=== PATIENT | female | born 1975 | race Caucasian/White ===

== ENCOUNTER 2021-12-05 07:14 | Day surgery (SDC) | payer OTHER ==
[~2021-12-05] VITALS: Ht 152.4 cm; Wt 53.5 kg
[2021-12-05] MEDS ORDERED: fentaNYL citrate 0.05 MG/ML VIAL ONE (08:07)
[2021-12-05] MEDS ORDERED: MIDAZOLAM 5 MG/5 ML VIAL ONE (08:07)
[2021-12-05] MEDS ORDERED: LIDOCAINE 2% 100 MG/5 ML UJET TP ONE (08:07)
[2021-12-05] MEDS ORDERED: fentaNYL citrate 0.05 MG/ML VIAL IVP ONE (13:05)
[2021-12-05] MEDS ORDERED: MIDAZOLAM 2 MG/2 ML VIAL IVP ONE (13:05)
== END 2021-12-05 09:45 | disposition home or self-care (01) ==
LOC: MOR 07:14 → MMU 07:15 → MOR 09:45
PROVIDERS: ATTEND Internal Medicine Gastroenterology
DX: Z12.11 Encounter for screening for malignant neoplasm of colon (principal); K30 Functional dyspepsia; K29.70 Gastritis, unspecified, without bleeding; R14.0 Abdominal distension (gaseous); Z88.0 Allergy status to penicillin; Z79.899 Other long term (current) drug therapy; Z90.710 Acquired absence of both cervix and uterus; Z20.822 Contact with and (suspected) exposure to COVID-19
CPT/HCPCS: 43235; 45378; 81025; 87426; J2250; J3010